=== PATIENT | male | born 1960 | race Caucasian/White ===

== ENCOUNTER 2018-10-16 15:01 | Inpatient (IN) | payer MEDICARE, MEDICAID ==
[~2018-10-16] VITALS: Ht 182.9 cm; Wt 116.6 kg
[2018-10-16 15:56] LABS: BASOPHILS % (AUTO) 0 % (0-10); EOSINOPHILS # (AUTO) 0.1 10^3/uL (0.0-0.3); EOSINOPHILS % (AUTO) 1 % (0-10); HEMATOCRIT 45 % (40-54); HEMOGLOBIN 14.9 G/DL (13.3-17.7); LYMPHOCYTES % (AUTO) 10 % (12-44); MEAN CORPUSCULAR HEMOGLOBIN 29 PG (25-34); MEAN CORPUSCULAR HGB CONC 33 G/DL (32-36); MEAN CORPUSCULAR VOLUME 89 FL (80-99); MEAN PLATELET VOLUME 10.4 FL (7.4-10.4); MONOCYTES # (AUTO) 0.8 X 10^3 (0.0-1.0); MONOCYTES % (AUTO) 8 % (0-12); NEUTROPHILS # (AUTO) 8.2 X 10^3 (1.8-7.8); NEUTROPHILS % (AUTO) 81 % (42-75); PLATELET COUNT 244 10^3/uL (130-400); RED CELL DISTRIBUTION WIDTH 13.9 % (10.0-14.5); WHITE BLOOD COUNT 10.1 10^3/uL (4.3-11.0)
[2018-10-16 16:06] LABS: CLARITY,URINE SLIGHTLY CLOUDY; COLOR,URINE AMBER; GLUCOSE, URINE (UA) NEGATIVE (NEGATIVE); KETONES,URINE 1+ (NEGATIVE); LEUKOCYTE ESTERASE ,URINE 1+ (NEGATIVE); NITRITE,URINE POSITIVE (NEGATIVE); PH,URINE 5 (5-9); PROTEIN,URINE 2+ (NEGATIVE); UROBILINOGEN,URINE 4 MG/DL (NORMAL)
[2018-10-16 16:07] LABS: PROTHROMBIN TIME PATIENT 13.4 SEC (12.2-14.7)
[2018-10-16 16:17] LABS: BACTERIA,URINE TRACE /HPF; BILIRUBIN,URINE 2+ (NEGATIVE); SQUAMOUS EPITHELIAL CELL,UR RARE /HPF
[2018-10-16 16:18] LABS: ALANINE AMINOTRANSFERASE 20 U/L (0-55); ALBUMIN 4.2 GM/DL (3.2-4.5); ALKALINE PHOSPHATASE 70 U/L (40-136); BILIRUBIN,TOTAL 0.4 MG/DL (0.1-1.0); BUN/CREATININE RATIO 16; CALCIUM 10.2 MG/DL (8.5-10.1); CARBON DIOXIDE 27 MMOL/L (21-32); CHLORIDE 101 MMOL/L (98-107); GFR ESTIMATED > 60; GLUCOSE 106 MG/DL (70-105); POTASSIUM 3.7 MMOL/L (3.6-5.0); SODIUM 136 MMOL/L (135-145); TOTAL PROTEIN 8.5 GM/DL (6.4-8.2)
[2018-10-16 16:18] LABS: GRANULAR CASTS,URINE RARE /LPF
--- NOTE | 2018-10-16 16:22 | Diagnostic Imaging Report ---
INDICATION: Left leg pain and swelling. Portable chest at 4:03 p.m. FINDINGS: Heart size and pulmonary vascularity are normal. Lungs are clear. There are no effusions or pneumothoraces. IMPRESSION: Negative chest. Dictated by: Dictated on workstation # [id number]
[2018-10-16] MEDS ORDERED: CEFEPIME INJECTION 1,000 MG in WATER (STERILE) FOR INJECTION 10 ML IV ONE (16:30)
--- NOTE | 2018-10-16 16:41 | ED General ---
General Chief Complaint: Skin/Wound Problems Stated Complaint: CELLULITIS Nursing Triage Note: PT STATES MONDAY HE NOTICED SWELLING AND REDNESS IN HIS LEFT LEG. PT HAS HISTORY OF CELLULITUS. PT DENIES PMH. PT STATES NUMBNESS AND TINGLING IN LEFT LEG AND FOOT WITH THROBBING. PT DENIES EATING SALTY FOODS. PT DENIES PMH. Nursing Sepsis Screen: No Definite Risk Source of Information: Patient Exam Limitations: No Limitations History of Present Illness Date Seen by Provider: October 16, 2018 Time Seen by Provider: 15:34 Initial Comments Here with report of left lower extremity swelling and redness has been going on for the last 2-3 days. He states that he has cellulitis of that leg every 2-3 years after he had significant injury many years ago. Did have fever and chills overnight. Reports that he had some nausea and vomiting yesterday. That is somewhat improved today. He was seen by his provider's nurse practitioner today who recommended that he come here for further evaluation because he likely needed admission. Timing/Duration: 2-3 Days Severity: Moderate Modifying Factors: improves with Immobilization; worse with Movement Associated Systoms: No Chest Pain, No Cough; Fever/Chills; No Headaches; Nausea/Vomiting; No Shortness of Air, No Weakness Allergies and Home Medications Allergies Coded Allergies: aripiprazole (Verified Allergy, Unknown, 10/16/18) citalopram (Verified Allergy, Unknown, 10/16/18) codeine (Verified Allergy, Unknown, 10/16/18) Patient Home Medication List Home Medication List Reviewed: Yes Review of Systems Review of Systems Constitutional: see HPI; No chills, No fever EENTM: no symptoms reported Respiratory: no symptoms reported Cardiovascular: no symptoms reported Gastrointestinal: No nausea, No vomiting Genitourinary: no symptoms reported Musculoskeletal: see HPI, muscle pain, muscle stiffness Skin: change in color; No lesions Psychiatric/Neurological: No Symptoms Reported All Other Systems Reviewed Negative Unless Noted: Yes Past Boboaqp-Rbghzs-Pruedb Hx Past Med/Social Hx: Reviewed Nursing Past Med/Soc Hx Patient Social History Alcohol Use: Occasionally Uses Alcohol Beverage of Choice: Beer Recreational Drug Use: Yes (RARE THC) Smoking Status: Former Smoker Type Used: Cigarettes Former Smoker, Quit: Jul 20, 2018 Recent Foreign Travel: No Contact w/Someone Who Travel: No Recent Infectious Disease Expo: No Recent Hopitalizations: No Seasonal Allergies Seasonal Allergies: Yes Past Medical History Surgeries: Yes (TRAUMA TO LT FEMUR, TRAUMA TO RT HAND) Orthopedic Respiratory: No Cardiac: No Neurological: No Genitourinary: No Gastrointestinal: No Musculoskeletal: No Endocrine: Yes Hypothyroidsim Cancer: No Psychosocial: Yes Bipolar, Depression Family Medical History Reviewed Nursing Family Hx Physical Exam-Suspected Sepsis Physical Exam Vital Signs Vital Signs - First Documented 10/16/18 15:13 Temp 98.3 Pulse 79 Resp 18 B/P (MAP) 133/89 (104) Pulse Ox 96 O2 Delivery Room Air Capillary Refill : Less Than 3 Seconds Blood Pressure Mean: 104 Height, Weight, BMI Height: 6'0" Weight: 257lbs. oz. 116.206917ua; BMI Method:Stated General Appearance: No Apparent Distress, WD/WN HEENT: PERRL/EOMI, Pharynx Normal Neck: Non Tender, Supple Respiratory: Lungs Clear, Normal Breath Sounds Cardiovascular: Regular Rate, Rhythm, No Murmur Gastrointestinal: Non Tender, Soft Back: Normal Inspection, No CVA Tenderness, No Vertebral Tenderness Extremity: Pedal Edema (moderate left leg from toes to mid thigh), Swelling (left leg) Neurologic/Psychiatric: Alert, Oriented x3 Skin: other (left lower extremity was read and hot up to the level just below the knee. Tender over area of reddened skin.) Focused Exam Lactate Level 10/16/18 15:45: Lactic Acid Level 1.60 Lactic Acid Level Laboratory Tests Test 10/16/18 15:45 Lactic Acid Level 1.60 MMOL/L (0.50-2.00) Progress/Results/Core Measures Suspected Sepsis Recent Fever Within 48 Hours: Yes Infection Criteria Present: Suspected New Infection New/Unexplained Altered Menta: No Sepsis Screen: No Definite Risk SIRS Temperature:98.3 Pulse: 79 Respiratory Rate: 18 Laboratory Tests 10/16/18 15:45: White Blood Count 10.1 Blood Pressure 133 /89 Mean: 104 10/16/18 15:45: Lactic Acid Level 1.60 Laboratory Tests 10/16/18 15:45: Creatinine 1.20, INR Comment 1.0, Platelet Count 244, Total Bilirubin 0.4 Results/Orders Lab Results Laboratory Tests Test 10/16/18 15:45 10/16/18 15:55 Range/Units White Blood Count 10.1 4.3-11.0 10^3/uL Red Blood Count 5.08 4.35-5.85 10^6/uL Hemoglobin 14.9 13.3-17.7 G/DL Hematocrit 45 40-54 % Mean Corpuscular Volume 89 80-99 FL Mean Corpuscular Hemoglobin 29 25-34 PG Mean Corpuscular Hemoglobin Concent 33 32-36 G/DL Red Cell Distribution Width 13.9 10.0-14.5 % Platelet Count 244 130-400 10^3/uL Mean Platelet Volume 10.4 7.4-10.4 FL Neutrophils (%) (Auto) 81 H 42-75 % Lymphocytes (%) (Auto) 10 L 12-44 % Monocytes (%) (Auto) 8 0-12 % Eosinophils (%) (Auto) 1 0-10 % Basophils (%) (Auto) 0 0-10 % Neutrophils # (Auto) 8.2 H 1.8-7.8 X 10^3 Lymphocytes # (Auto) 1.0 1.0-4.0 X 10^3 Monocytes # (Auto) 0.8 0.0-1.0 X 10^3 Eosinophils # (Auto) 0.1 0.0-0.3 10^3/uL Basophils # (Auto) 0.0 0.0-0.1 10^3/uL Prothrombin Time 13.4 12.2-14.7 SEC INR Comment 1.0 0.8-1.4 Activated Partial Thromboplast Time 36 H 24-35 SEC Sodium Level 136 135-145 MMOL/L Potassium Level 3.7 3.6-5.0 MMOL/L Chloride Level 101 98-107 MMOL/L Carbon Dioxide Level 27 21-32 MMOL/L Anion Gap 8 5-14 MMOL/L Blood Urea Nitrogen 19 H 7-18 MG/DL Creatinine 1.20 0.60-1.30 MG/DL Estimat Glomerular Filtration Rate > 60 BUN/Creatinine Ratio 16 Glucose Level 106 H 70-105 MG/DL Lactic Acid Level 1.60 0.50-2.00 MMOL/L Calcium Level 10.2 H 8.5-10.1 MG/DL Corrected Calcium 10.0 8.5-10.1 MG/DL Total Bilirubin 0.4 0.1-1.0 MG/DL Aspartate Amino Transf (AST/SGOT) 20 5-34 U/L Alanine Aminotransferase (ALT/SGPT) 20 0-55 U/L Alkaline Phosphatase 70 40-136 U/L Total Protein 8.5 H 6.4-8.2 GM/DL Albumin 4.2 3.2-4.5 GM/DL Urine Color HILTON H Urine Clarity SLIGHTLY CLOUDY Urine pH 5 5-9 Urine Specific [place] 1.020 1.016-1.022 Urine Protein 2+ H NEGATIVE Urine Glucose (UA) NEGATIVE NEGATIVE Urine Ketones 1+ H NEGATIVE Urine Nitrite POSITIVE H NEGATIVE Urine Bilirubin 2+ H NEGATIVE Urine Urobilinogen 4 H NORMAL MG/DL Urine Leukocyte Esterase 1+ H NEGATIVE Urine RBC (Auto) 3+ H NEGATIVE Urine RBC 2-5 H /HPF Urine WBC 2-5 /HPF Urine Squamous Epithelial Cells RARE /HPF Urine Crystals NONE /LPF Urine Bacteria TRACE /HPF Urine Casts PRESENT /LPF Urine Granular Casts RARE /LPF Urine Mucus LARGE H /LPF Urine Culture Indicated CULTURE PENDING My Orders Orders - CHELSI CAMPBELL MD Us Venous Lower Ext Lt (10/16/18 15:35) Cbc With Automated Diff (10/16/18 15:35) Comprehensive Metabolic Panel (10/16/18 15:35) Blood Culture (10/16/18 15:35) Sputum Culture (10/16/18 15:35) Urinalysis (10/16/18 15:35) Urine Culture (10/16/18 15:35) Protime With Inr (10/16/18 15:35) Partial Thromboplastin Time (10/16/18 15:35) Chest 1 View, Ap/Pa Only (10/16/18 15:35) Ed Iv/Invasive Line Start (10/16/18 15:35) Vital Signs Adult Sepsis Patie Q15M (10/16/18 15:35) O2 (10/16/18 15:35) Remove Rings In Anticipation O (10/16/18 15:35) Lactic Acid Analyzer (10/16/18 15:35) Cefepime Injection (Maxipime Injection) (10/16/18 16:30) Vital Signs/I&O 10/16/18 15:13 Temp 98.3 Pulse 79 Resp 18 B/P (MAP) 133/89 (104) Pulse Ox 96 O2 Delivery Room Air Capillary Refill : Less Than 3 Seconds Blood Pressure Mean: 104 Progress Note : Progress Note Seen and evaluated. IV, labs, blood cultures, lactic acid, UA and chest x-ray ordered. Ultrasound left lower extremity ordered. Monitor patient. 1603: Findings consistent with cellulitis and DVT study negative. We will initiate treatment for lower extremity cellulitis and due to the swelling we will use cefepime and vancomycin. Cefepime 1 g IV initiated. I did discuss the case with Dr. Prado and she accepts patient for admission, inpatient status. Patient agrees with plan. Diagnostic Imaging Diagonstic Imaging: Xray Plain Films/CT/US/NM/MRI: chest Comments [facility], [place] NAME: GRISELDA GARCIA [facility] REC#: [id number] PT STATUS: REG ER : 1960 PHYSICIAN: CHELSI CAMPBELL MD ADMIT DATE: 10/16/18/ER Draft Date of Exam:10/16/18 CHEST 1 VIEW, AP/PA ONLY INDICATION: Left leg pain and swelling. Portable chest at 4:03 p.m. FINDINGS: Heart size and pulmonary vascularity are normal. Lungs are clear. There are no effusions or pneumothoraces. IMPRESSION: Negative chest. Dictated on workstation # [id number] Dict: 10/16/18 1610 Trans: 10/16/18 1621 KB [id number] Interpreted by: CHELSI AYOUB MD Electronically signed by: Diagonstic Imaging: Ultrasound Plain Films/CT/US/NM/MRI: leg Comments Left lower extremity ultrasound shows no findings concerning for DVT per preliminary read. Departure Communication (Admissions) Time/Spoke to Admitting Phy: 16:03 Impression Primary Impression: Cellulitis of left lower extremity Disposition: ADMITTED INPATIENT Condition: Stable Admissions Decision to Admit Reason: Admit from ER (General) Decision to Admit/Date: October 16, 2018 Time/Decision to Admit Time: 16:03 Departure-Patient Inst. Referrals: CHARLOTTE DAWN MD (PCP) Primary Care Physician CHELSI CAMPBELL MD October 16, 2018 16:41
--- OUTSIDE RECORDS SUMMARY | 2018-10-16 17:05 | XMS REPORT | Continuity of Care Document ---
Author Organization Unknown Address Unknown Allergies There is no data. Medications There is no data. Problems There is no data. Procedures There is no data. Results There is no data. Encounters ACCT No. Visit Date/Time Discharge Status Pt. Type Provider Facility Loc./Unit Complaint [id number] 09/24/2018 10:50:00 09/24/2018 23:59:59 CLS Outpatient YASSINE PHD, BOAZ Hauser [facility]
--- OUTSIDE RECORDS SUMMARY | 2018-10-16 17:23 | XMS REPORT | Continuity of Care Document ---
Author Organization Unknown Address Unknown Allergies There is no data. Medications There is no data. Problems There is no data. Procedures There is no data. Results There is no data. Encounters ACCT No. Visit Date/Time Discharge Status Pt. Type Provider Facility Loc./Unit Complaint [id number] 09/24/2018 10:50:00 09/24/2018 23:59:59 CLS Outpatient YASSINE PHD, BOAZ Hauser [facility]
[2018-10-16 17:47] VITALS: BP 127/68
[2018-10-16 17:49] VITALS: BP 127/68
--- NOTE | 2018-10-16 17:57 | NUR ---
GRISELDA GARCIA admitted to room 424-1, with an admitting diagnosis of cellulitis, on 10/16/18 from [place] via wheelchair, accompanied by staff.GRISELDA GARCIA introduced to surroundings, call light, bed controls, phone, TV, temperature control, lights, meal times, smoking policy, visitor policy, side rail policy, bathrooms and showers. Patient Rights given to patient in the handbook. GRISELDA GARCIA verbalizes understanding that [facility] is not responsible for the loss or damage to any personal effects or valuables that are kept in the patients posession during their hospitalization. The following Patient Care Plans were discussed with the pt: Discharge Planning. GRISELDA GARCIA verbalizes understanding of Interdisciplinary Patient Education. Patient and/or family were informed about the Rapid Response Team and its purpose.
[2018-10-16 19:09] VITALS: BP 128/78
[2018-10-16] MEDS ORDERED: VANCOMYCIN 2,500 MG/NS 500 ML IVPB IV NR ×2 (19:30)
[2018-10-16] MEDS ORDERED: ONDANSETRON 4 MG/2 ML (SDV) Z0FRAN IV PRN (19:45)
[2018-10-16] MEDS ORDERED: ACETAMINOPHEN 500 MG TAB (TYLENOL) PO PRN (19:45)
[2018-10-16] MEDS: CATHETER FLUSH 10 ML SYR IV SCH (19:48)
--- NOTE | 2018-10-16 19:49 | NUR ---
PHARMACY TO DOSE VANCOMYCIN: ADJ BW 93.2 KG, SCr 1.2, EST CrCl 88 LOADING DOSE = 2,500 MG MAIN DOSE = 1,750 MG Q 12 HR VANCOMYCIN TROUGH DUE 10/18/18 @ 07:00 IF TROUGH GREATER THAN 20 HOLD 10/18/18 08:00 DOSE.
[2018-10-16] MEDS: KETOROLAC 30 MG/ML VIAL IV PRN (19:58)
[2018-10-16] MEDS ORDERED: CATHETER FLUSH 10 ML SYR IV PRN (20:00)
[2018-10-16] MEDS: CEFEPIME 1,000 MG/SWFI 10 ML IV PUSH IV SCH ×2 (23:56)
[2018-10-17] VITALS: BP 95/50
[2018-10-17] MEDS: KETOROLAC 30 MG/ML VIAL IV PRN ×2 (03:59→16:07)
[2018-10-17 04:00] VITALS: BP 118/69
[2018-10-17 06:07] LABS: BASOPHILS % (AUTO) 0 % (0-10); EOSINOPHILS # (AUTO) 0.1 10^3/uL (0.0-0.3); EOSINOPHILS % (AUTO) 1 % (0-10); HEMATOCRIT 38 % (40-54); HEMOGLOBIN 12.5 G/DL (13.3-17.7); LYMPHOCYTES # (AUTO) 1.3 X 10^3 (1.0-4.0); LYMPHOCYTES % (AUTO) 11 % (12-44); MEAN CORPUSCULAR HEMOGLOBIN 29 PG (25-34); MEAN CORPUSCULAR HGB CONC 33 G/DL (32-36); MEAN CORPUSCULAR VOLUME 89 FL (80-99); MEAN PLATELET VOLUME 10.3 FL (7.4-10.4); MONOCYTES # (AUTO) 1.1 X 10^3 (0.0-1.0); MONOCYTES % (AUTO) 9 % (0-12); NEUTROPHILS # (AUTO) 8.7 X 10^3 (1.8-7.8); NEUTROPHILS % (AUTO) 78 % (42-75); PLATELET COUNT 223 10^3/uL (130-400); RED CELL DISTRIBUTION WIDTH 13.8 % (10.0-14.5); WHITE BLOOD COUNT 11.2 10^3/uL (4.3-11.0)
[2018-10-17] MEDS: CEFEPIME 1,000 MG/SWFI 10 ML IV PUSH IV SCH ×8 (06:24→23:18)
[2018-10-17] MEDS: CATHETER FLUSH 10 ML SYR IV SCH ×3 (06:24→20:33)
[2018-10-17 06:39] LABS: ALANINE AMINOTRANSFERASE 26 U/L (0-55); ALBUMIN 3.2 GM/DL (3.2-4.5); ALKALINE PHOSPHATASE 66 U/L (40-136); BILIRUBIN,TOTAL 0.4 MG/DL (0.1-1.0); BUN/CREATININE RATIO 23; CARBON DIOXIDE 20 MMOL/L (21-32); CHLORIDE 104 MMOL/L (98-107); CREATININE SERUM 0.98 MG/DL (0.60-1.30); GFR ESTIMATED > 60; GLUCOSE 97 MG/DL (70-105); POTASSIUM 3.7 MMOL/L (3.6-5.0); SODIUM 135 MMOL/L (135-145); TOTAL PROTEIN 6.4 GM/DL (6.4-8.2)
--- NOTE | 2018-10-17 07:01 | Diagnostic Imaging Report ---
PROCEDURE: US left lower extremity venous. TECHNIQUE: Multiple real-time grayscale images were obtained over the left lower extremity in various projections. Additional duplex Doppler and color Doppler images were also obtained. INDICATION: Indication: Left lower extremity edema and pain EXAMINATION: Grayscale and color Doppler evaluation of the deep veins of the left lower extremity were performed with waveform analysis. FINDINGS: Continuous venous flow is present. No intraluminal filling defect is identified. There is normal compressibility and response to augmentation. No abnormal perivascular fluid collection is identified. IMPRESSION: No ultrasound evidence of left lower extremity deep venous thrombosis. Dictated by: Dictated on workstation # [id number]
[2018-10-17 08:00] VITALS: BP 123/69
[2018-10-17] MEDS: VANCOMYCIN 1,750 MG/NS 500 ML IVPB IV SCH ×4 (08:28→20:31)
[2018-10-17] MEDS ORDERED: SIMV40TA4 PO (08:44)
[2018-10-17] MEDS ORDERED: DICL100G18 TP (08:44)
[2018-10-17] MEDS ORDERED: SERT100T8 PO (08:44)
[2018-10-17] MEDS ORDERED: DIVA250T12 PO (08:44)
[2018-10-17] MEDS ORDERED: OMG1KC PO (08:44)
[2018-10-17] MEDS ORDERED: OMEP20CA12 PO (08:44)
[2018-10-17] MEDS ORDERED: LEVO150T6 PO (08:44)
[2018-10-17] MEDS ORDERED: DIVA500T15 PO (08:44)
--- NOTE | 2018-10-17 08:48 | NUR ---
SPOKE WITH THE PATIENT ABOUT HIS MEDICATIONS. THERE [facility] AND [facility] W[facility] WELL HIS BOTTLES HE HAS IN HIS ROOM. HIS SERTRALINE IS WRITTEN TO TAKE 1/2 TAB DAILY HOWEVER HE STATES LAST TIME HE WAS SEEN THIS WAS INCREASED TO 1 WHOLE TABLET DAILY. HE TAKES FISH OIL DAILY OTC.
--- NOTE | 2018-10-17 11:25 | History & Physicial (CHS) ---
HPI History of Present Illness: Cellulitis starting Monday overnight, had nausea, night sweats, cold sweats. He has had recurrent issues after a severe injury to his leg in the . He took ibuprofen and his temperature went down and he hasn't had fever since. Date seen by provider: October 17, 2018 Time Seen by Provider: 11:24 Attending Physician Stefany Prado MD PCP Milan Greenfield MD Consult Date of Admission October 16, 2018 at 16:03 Home Medications Home Medications Reviewed patient Home Medication Reconciliation performed by pharmacy medication reconciliations automotive drivability technician and/or nursing. Patients Allergies have been reviewed. Allergies Coded Allergies: aripiprazole (Verified Allergy, Unknown, 10/16/18) citalopram (Verified Allergy, Unknown, 10/16/18) codeine (Verified Allergy, Unknown, 10/16/18) DXO-Nummko-Mrhvmk Hx Patient Social History Alcohol Use: Occasionally Uses Recreational Drug Use: Yes (RARE THC) Smoking Status: Former Smoker Former smoker/When Quit: Jul 20, 2018 Type Used: Cigarettes Recent Foreign Travel: No Contact w/other who traveled: No Recent Hopitalizations: No Recent Infectious Disease Expo: No Physical Abuse Screen: No Sexual Abuse: No Immunizations Up To Date Date of Pneumonia Vaccine: Feb 01, 2017 Past Medical History PMHx: Depression Bipolar disorder Hypothyroidism PSurgHx: Left leg after metal piece injury Carpal tunnel Wrist injury Family Medical History Significant Family History: Diabetes, Hypertension Review of Systems (CHC) Constitutional: fever EENTM: No nose congestion, No throat pain Respiratory: cough (nonproductive); No short of breath Cardiovascular: No chest pain Gastrointestinal: No abdominal pain, No constipation; diarrhea, nausea; No vomiting Genitourinary: dysuria Musculoskeletal: joint pain (left knee and ankle) Skin: see HPI Psychiatric/Neurological: Denies Anxiety, Denies Depressed Reviewed Test Results Reviewed Test Results Lab Laboratory Tests Test 10/16/18 15:45 10/16/18 15:55 10/17/18 05:47 Range/Units White Blood Count 10.1 11.2 H 4.3-11.0 10^3/uL Red Blood Count 5.08 4.27 L 4.35-5.85 10^6/uL Hemoglobin 14.9 12.5 L 13.3-17.7 G/DL Hematocrit 45 38 L 40-54 % Mean Corpuscular Volume 89 89 80-99 FL Mean Corpuscular Hemoglobin 29 29 25-34 PG Mean Corpuscular Hemoglobin Concent 33 33 32-36 G/DL Red Cell Distribution Width 13.9 13.8 10.0-14.5 % Platelet Count 244 223 130-400 10^3/uL Mean Platelet Volume 10.4 10.3 7.4-10.4 FL Neutrophils (%) (Auto) 81 H 78 H 42-75 % Lymphocytes (%) (Auto) 10 L 11 L 12-44 % Monocytes (%) (Auto) 8 9 0-12 % Eosinophils (%) (Auto) 1 1 0-10 % Basophils (%) (Auto) 0 0 0-10 % Neutrophils # (Auto) 8.2 H 8.7 H 1.8-7.8 X 10^3 Lymphocytes # (Auto) 1.0 1.3 1.0-4.0 X 10^3 Monocytes # (Auto) 0.8 1.1 H 0.0-1.0 X 10^3 Eosinophils # (Auto) 0.1 0.1 0.0-0.3 10^3/uL Basophils # (Auto) 0.0 0.0 0.0-0.1 10^3/uL Prothrombin Time 13.4 12.2-14.7 SEC INR Comment 1.0 0.8-1.4 Activated Partial Thromboplast Time 36 H 24-35 SEC Sodium Level 136 135 135-145 MMOL/L Potassium Level 3.7 3.7 3.6-5.0 MMOL/L Chloride Level 101 104 98-107 MMOL/L Carbon Dioxide Level 27 20 L 21-32 MMOL/L Anion Gap 8 11 5-14 MMOL/L Blood Urea Nitrogen 19 H 23 H 7-18 MG/DL Creatinine 1.20 0.98 0.60-1.30 MG/DL Estimat Glomerular Filtration Rate > 60 > 60 BUN/Creatinine Ratio 16 23 Glucose Level 106 H 97 70-105 MG/DL Lactic Acid Level 1.60 0.50-2.00 MMOL/L Calcium Level 10.2 H 9.0 8.5-10.1 MG/DL Corrected Calcium 10.0 9.6 8.5-10.1 MG/DL Total Bilirubin 0.4 0.4 0.1-1.0 MG/DL Aspartate Amino Transf (AST/SGOT) 20 33 5-34 U/L Alanine Aminotransferase (ALT/SGPT) 20 26 0-55 U/L Alkaline Phosphatase 70 66 40-136 U/L Total Protein 8.5 H 6.4 6.4-8.2 GM/DL Albumin 4.2 3.2 3.2-4.5 GM/DL Urine Color HILTON H Urine Clarity SLIGHTLY CLOUDY Urine pH 5 5-9 Urine Specific [place] 1.020 1.016-1.022 Urine Protein 2+ H NEGATIVE Urine Glucose (UA) NEGATIVE NEGATIVE Urine Ketones 1+ H NEGATIVE Urine Nitrite POSITIVE H NEGATIVE Urine Bilirubin 2+ H NEGATIVE Urine Urobilinogen 4 H NORMAL MG/DL Urine Leukocyte Esterase 1+ H NEGATIVE Urine RBC (Auto) 3+ H NEGATIVE Urine RBC 2-5 H /HPF Urine WBC 2-5 /HPF Urine Squamous Epithelial Cells RARE /HPF Urine Crystals NONE /LPF Urine Bacteria TRACE /HPF Urine Casts PRESENT /LPF Urine Granular Casts RARE /LPF Urine Mucus LARGE H /LPF Urine Culture Indicated CULTURE PENDING Radiology CXR 10/16 with no acute findings Left LE US 10/16 no DVT Physical Exam-(CHC) Physical Exam Vital Signs VS - Last 72 Hours, by Label 10/16/18 10/16/18 10/16/18 10/16/18 15:13 17:28 17:47 17:49 Temp 98.3 96.5 97.8 97.8 Pulse 79 74 84 84 Resp 18 18 20 20 B/P (MAP) 133/89 (104) 121/76 (91) 127/68 127/68 (87) Pulse Ox 96 97 97 97 O2 Delivery Room Air Room Air Room Air Room Air 10/16/18 10/16/18 10/17/18 10/17/18 19:09 20:00 00:00 04:00 Temp 97.9 97.1 97.4 Pulse 80 73 81 Resp 22 18 18 B/P (MAP) 128/78 (95) 95/50 (65) 118/69 (85) Pulse Ox 97 97 93 90 O2 Delivery Room Air Room Air Room Air Room Air 10/17/18 10/17/18 10/17/18 08:00 08:00 12:00 Temp 96.6 98.7 Pulse 78 74 Resp 20 20 B/P (MAP) 123/69 (87) 101/59 (73) Pulse Ox 95 95 93 O2 Delivery Room Air Room Air Room Air Capillary Refill : Less Than 3 Seconds General Appearance: WD/WN, no apparent distress Respiratory: lungs clear Cardiovascular: regular rate, rhythm, no murmur Gastrointestinal: normal bowel sounds, non tender, soft Extremities: other (left lower leg with marked edema 2-3+, mild erythema from foot to mid [place]) Neurologic/Psychiatric: alert, normal mood/affect Assessment/Plan Assessment/Plan Admission Status: Inpatient Order (span 2 midnights) Reason for Inpatient Admission: Severe cellulitis requiring IV antibiotics with underlying abnormal anatomy at high risk for progression to sepsis (1) Cellulitis of left lower extremity Status: Acute Assessment & Plan: Without sepsis- afebrile, no leukocytosis, but severe swelling and underlying abnormal anatomy secondary to injury. Improving, Continue vancomycin and cefepime. (2) Urinary tract infection Status: Acute Assessment & Plan: On abx for cellulitis as noted above, culture pending. Qualifiers: Qualified Codes: N30.01 - Acute cystitis with hematuria (3) Bipolar disorder Status: Chronic Assessment & Plan: Resume home medications (4) Hypothyroidism Status: Chronic Assessment & Plan: Resume home medication. (5) DVT prophylaxis Status: Acute Assessment & Plan: Enoxaparin. Clinical Quality Measures DVT/VTE Risk/Contraindication: Risk Factor Score Per Nursin RFS Level Per Nursing on Admit: 3=High STEFANY PRADO MD October 17, 2018 11:25
[2018-10-17 12:00] VITALS: BP 101/59
[2018-10-17] MEDS ORDERED: DICLOFENAC 1% GEL 100 GM (VOLTAREN) TUBE TOP PRN (12:45)
[2018-10-17] MEDS: LEVOTHYROXINE 150 MCG (LEVOTHROID) TAB PO SCH (13:22)
[2018-10-17] MEDS ORDERED: PHARMACY TO DOSE SQ SCH (15:00)
[2018-10-17 16:10] VITALS: BP 121/70
[2018-10-17] MEDS: ENOXAPARIN 40 MG/0.4 ML (LOVENOX) SYR SC SCH (16:12)
[2018-10-17 19:55] VITALS: BP 100/56
[2018-10-17] MEDS: SIMvastatin 20 MG (ZOCOR) TAB PO SCH (20:31)
[2018-10-17] MEDS: DIVALPROEX EXT RELEASE 250 MG (DEPAKOTE ER) TAB PO SCH (20:31)
[2018-10-17] MEDS: SERTRALINE 100 MG (ZOLOFT) TAB PO SCH (20:32)
[2018-10-17] MEDS: DIVALPROEX EXT RELEASE 500 MG (DEPAKOTE ER) TAB PO SCH (20:32)
[2018-10-18 00:26] VITALS: BP 130/65
[2018-10-18] MEDS: LEVOTHYROXINE 150 MCG (LEVOTHROID) TAB PO SCH (06:00)
[2018-10-18] MEDS: CATHETER FLUSH 10 ML SYR IV SCH ×3 (06:01→20:11)
[2018-10-18] MEDS: CEFEPIME 1,000 MG/SWFI 10 ML IV PUSH IV SCH ×6 (06:01→18:33)
[2018-10-18] MEDS ORDERED: LEVOTHYROXINE 150 MCG (LEVOTHROID) TAB PO SCH (06:30)
[2018-10-18] MEDS ORDERED: TROUGH ORDER-PHARMACY XX NR (07:00)
[2018-10-18 07:06] LABS: HEMOGLOBIN 11.9 G/DL (13.3-17.7); MEAN PLATELET VOLUME 9.7 FL (7.4-10.4); RED CELL DISTRIBUTION WIDTH 13.6 % (10.0-14.5); WHITE BLOOD COUNT 10.5 10^3/uL (4.3-11.0)
[2018-10-18 07:23] LABS: BUN/CREATININE RATIO 17; CALCIUM 8.8 MG/DL (8.5-10.1); CARBON DIOXIDE 22 MMOL/L (21-32); CHLORIDE 106 MMOL/L (98-107); CREATININE SERUM 0.84 MG/DL (0.60-1.30); GFR ESTIMATED > 60; GLUCOSE 98 MG/DL (70-105); SODIUM 135 MMOL/L (135-145)
[2018-10-18 07:31] LABS: VANCOMYCIN,TROUGH 17.1 UG/ML (10.0-20.0)
[2018-10-18 08:34] VITALS: BP 104/64
[2018-10-18] MEDS: VANCOMYCIN 1,750 MG/NS 500 ML IVPB IV SCH ×4 (08:46→20:08)
[2018-10-18] MEDS: PANTOPRAZOLE 20 MG TABLET (PROTONIX) PO SCH (08:46)
[2018-10-18 13:18] VITALS: BP 133/89
--- NOTE | 2018-10-18 13:29 | Progress Note (SOAP) ---
Subjective Subjective/Events-last exam Afebrile, no acute events. Leg remains massively swollen and he cannot ambulate due to swelling. Review of Systems Date Seen by Provider: October 18, 2018 Time Seen by Provider: 11:00 Focused Exam Lactate Level 10/16/18 15:45: Lactic Acid Level 1.60 Objective Exam Last Set of Vital Signs Vital Signs Date Time Temp Pulse Resp B/P (MAP) Pulse Ox O2 Delivery O2 Flow Rate FiO2 10/18/18 08:34 100.0 70 21 104/64 (77) 96 Room Air 0.00 Capillary Refill : Less Than 3 Seconds I&O Intake and Output 10/18/18 00:00 Intake Total 3135.0 ml Output Total 975 ml Balance 2160.0 ml Intake Oral 2080 ml IV Total 1055.0 ml Output Urine Total 975 ml # Bowel Movements 2 General: Alert, No Acute Distress Lungs: Other (wheeze on right) Heart: Regular Rate, No Murmurs Skin: Other (left lower leg with decreasing erythema and some skin wrinkling visible, but still with massive 3+ swelling) Psych/Mental Status: Mental Status NL Results/Procedures Lab Laboratory Tests 10/18/18 07:00: White Blood Count 10.5, Red Blood Count 4.03L, Hemoglobin 11.9L, Hematocrit 36L, Mean Corpuscular Volume 88, Mean Corpuscular Hemoglobin 30, Mean Corpuscular Hemoglobin Concent 33, Red Cell Distribution Width 13.6, Platelet Count 227, Mean Platelet Volume 9.7, Sodium Level 135, Potassium Level 4.0, Chloride Level 106, Carbon Dioxide Level 22, Anion Gap 7, Blood Urea Nitrogen 14, Creatinine 0.84, Estimat Glomerular Filtration Rate > 60, BUN/Creatinine Ratio 17, Glucose Level 98, Calcium Level 8.8, Vancomycin Level Trough 17.1 Microbiology 10/16/18 Blood Culture - Preliminary, Resulted No growth 10/16/18 Urine Culture - Final, Complete NO GROWTH Radiology CXR 10/16 with no acute findings Left LE US 10/16 no DVT Assessment/Plan Assessment/Plan (1) Cellulitis of left lower extremity Status: Acute Assessment & Plan: Without sepsis- afebrile, no leukocytosis, but severe swelling and underlying abnormal anatomy secondary to injury. Improving, Continue vancomycin and cefepime. 10/18 improving slowly, still too severely swollen to function safely at home, continue IV abx for now (2) Urinary tract infection Status: Acute Assessment & Plan: On abx for cellulitis as noted above, culture pending. 10/18 culture with no growth to date, will repeat UA given blood and nitrites on first check. Qualifiers: Qualified Codes: N30.01 - Acute cystitis with hematuria (3) Bipolar disorder Status: Chronic Assessment & Plan: Resume home medications (4) Hypothyroidism Status: Chronic Assessment & Plan: Resume home medication. (5) DVT prophylaxis Status: Acute Assessment & Plan: Enoxaparin. Clinical Quality Measures DVT/VTE Risk/Contraindication: Risk Factor Score Per Nursin RFS Level Per Nursing on Admit: 3=High STEFANY FARIAS MD October 18, 2018 13:29
[2018-10-18] MEDS: KETOROLAC 30 MG/ML VIAL IV PRN (15:23)
[2018-10-18] MEDS: ENOXAPARIN 40 MG/0.4 ML (LOVENOX) SYR SC SCH (15:24)
[2018-10-18 16:00] VITALS: BP 120/71
[2018-10-18] MEDS: RT-ALBUTEROL SULF 2.5 MG/3 ML PRE-MIX VIAL INH PRN (19:21)
[2018-10-18] MEDS: SIMvastatin 20 MG (ZOCOR) TAB PO SCH (20:08)
[2018-10-18] MEDS: SERTRALINE 100 MG (ZOLOFT) TAB PO SCH (20:08)
[2018-10-18] MEDS: DIVALPROEX EXT RELEASE 500 MG (DEPAKOTE ER) TAB PO SCH (20:10)
[2018-10-18] MEDS: DIVALPROEX EXT RELEASE 250 MG (DEPAKOTE ER) TAB PO SCH (20:11)
[2018-10-19 00:53] VITALS: BP 120/69
[2018-10-19] MEDS: CEFEPIME 1,000 MG/SWFI 10 ML IV PUSH IV SCH ×6 (00:56→13:35)
[2018-10-19] MEDS: KETOROLAC 30 MG/ML VIAL IV PRN (05:30)
[2018-10-19] MEDS: LEVOTHYROXINE 150 MCG (LEVOTHROID) TAB PO SCH (05:31)
[2018-10-19] MEDS: CATHETER FLUSH 10 ML SYR IV SCH (05:31)
[2018-10-19 06:53] LABS: HEMOGLOBIN 11.3 G/DL (13.3-17.7); RED CELL DISTRIBUTION WIDTH 13.7 % (10.0-14.5); WHITE BLOOD COUNT 9.5 10^3/uL (4.3-11.0)
[2018-10-19 06:55] LABS: BILIRUBIN,URINE NEGATIVE (NEGATIVE); CLARITY,URINE CLEAR; COLOR,URINE YELLOW; GLUCOSE, URINE (UA) NEGATIVE (NEGATIVE); KETONES,URINE NEGATIVE (NEGATIVE); LEUKOCYTE ESTERASE ,URINE NEGATIVE (NEGATIVE); NITRITE,URINE NEGATIVE (NEGATIVE); PH,URINE 6 (5-9); PROTEIN,URINE NEGATIVE (NEGATIVE); UROBILINOGEN,URINE NORMAL (NORMAL)
[2018-10-19 07:13] LABS: BACTERIA,URINE NEGATIVE /HPF; RBC,URINE RARE /HPF; SQUAMOUS EPITHELIAL CELL,UR 0-2 /HPF; WBC,URINE 0-2 /HPF
[2018-10-19] MEDS: RT-ALBUTEROL SULF 2.5 MG/3 ML PRE-MIX VIAL INH PRN (07:48)
[2018-10-19 08:00] VITALS: BP 126/68
[2018-10-19] MEDS ORDERED: CEPH500T PO (08:37)
[2018-10-19] MEDS: PANTOPRAZOLE 20 MG TABLET (PROTONIX) PO SCH (09:05)
[2018-10-19] MEDS: VANCOMYCIN 1,750 MG/NS 500 ML IVPB IV SCH ×2 (09:06)
--- NOTE | 2018-10-19 12:36 | Discharge Instructions ---
Discharge [facility] Discharge Medications New, Converted or Re-Newed RX: Transmitted to Pharmacy New Medications: Cephalexin (Cephalexin) 500 Mg Tablet 500 MG PO QID for 10 Days, #40 TAB 0 Refills Continued Medications: Diclofenac Sodium (Voltaren) 100 Gm Gel..gram. 4 GM TP QID PRN for MUSCLE PAIN, TUBE Divalproex Sodium (Divalproex Sodium ER) 500 Mg Tab.er.24h 1500 MG PO HS, TAB TAKES 3 (500MG) TABLETS ALONG WITH 250MG TABLET FOR A TOTAL DAILY DOSE OF 1750MG. Divalproex Sodium (Divalproex Sodium ER) 250 Mg Tab.er.24h 250 MG PO HS, TAB TAKES ALONG WITH 3 (500MG) TABLETS FOR A TOTAL DAILY DOSE OF 1750MG Levothyroxine Sodium (Levothyroxine Sodium) 150 Mcg Tablet 150 MCG PO DAILY, TAB Poca 3 Polyunsat Fatty Acids (Fish Oil 1,000 mg Capsule) 1,000 Mg Cap 1000 MG PO DAILY, CAP Omeprazole (Omeprazole) 20 Mg Capsule.dr 20 MG PO DAILY, CAP Sertraline HCl (Sertraline HCl) 100 Mg Tablet 100 MG PO HS, TAB Simvastatin (Simvastatin) 40 Mg Tablet 20 MG PO HS, TAB TAKES 1/2 (40MG) TABLET Patient Instructions Goal/Follow Up Appt: Follow up with Dr. Greenfield on October 25 at 3 pm. [facility] to [facility] For: Worsening redness and swelling in leg, inability to keep down medications. Activity & Diet Activity as Tolerated: Yes STEFANY FARIAS MD October 19, 2018 08:39
--- NOTE | 2018-10-19 13:50 | NUR ---
Important Message from Medicare presented/reviewed/signed and placed in patient chart. Patient and family voiced no intention to appeal and deny any needs or further questions at this time.
[2018-10-19] MEDS ORDERED: FURO20TA4 PO (14:31)
--- NOTE | 2018-10-19 17:35 | Discharge Summary ---
Diagnosis/Chief Complaint Date of Admission October 16, 2018 at 16:03 Date of Discharge October 19, 2018 at 14:40 Admission Diagnosis Admission Diagnosis LLE cellulitis Discharge Diagnosis See problem list Problems/Diagnosis: (1) Cellulitis of left lower extremity Assessment & Plan: Without sepsis- afebrile, no leukocytosis, but severe swelling and underlying abnormal anatomy secondary to injury. Improving, Continue vancomycin and cefepime. 10/19 improving slowly discharged on cephalexin Status: Acute (2) Urinary tract infection Assessment & Plan: On abx for cellulitis as noted above, culture pending. 10/18 culture with no growth to date, will repeat UA given blood and nitrites on first check. 10/19 repeat UA normal. Qualifiers: Qualified Codes: N30.01 - Acute cystitis with hematuria Status: Resolved (3) Bipolar disorder Assessment & Plan: Resume home medications Status: Chronic (4) Hypothyroidism Assessment & Plan: Resume home medication. Status: Chronic Chief Complaint/HPI Chief Complaint/HPI Cellulitis starting Monday overnight, had nausea, night sweats, cold sweats. He has had recurrent issues after a severe injury to his leg in the . He took ibuprofen and his temperature went down and he hasn't had fever since. Discharge Summary-Simple/Stand Consultations Discharge Physical Examination Allergies: Coded Allergies: aripiprazole (Verified Allergy, Unknown, 10/16/18) citalopram (Verified Allergy, Unknown, 10/16/18) codeine (Verified Allergy, Unknown, 10/16/18) Vitals & I&Os Vital Sign - Last 12Hours Date Time Temp Pulse Resp B/P (MAP) Pulse Ox O2 Delivery O2 Flow Rate FiO2 10/19/18 14:40 10/19/18 08:10 Room Air 10/19/18 08:00 96.3 67 20 95 10/18/18 13:18 21 10/18/18 08:34 0.00 Intake and Output 10/19/18 00:00 Intake Total 3157.5 ml Output Total 2100 ml Balance 1057.5 ml General Appearance: Alert, No Acute Distress Respiratory: Clear to Auscultation, Normal Air Movement Cardiovascular: Regular Rate, No Murmurs Abdominal: Normal Bowel Sounds, No Tenderness Skin: Other (Left leg massively swollen from foot to knee, mild erythema decreasing, some skin wrinkles visible.) Neuro: Normal Speech Psych/Mental Status: Mood NL Hospital Course See final discharge diagnosis. Radiology Reviewed CXR 10/16 with no acute findings Left LE US 10/16 no DVT Discharge Instructions to patient/family Please see electronic discharge instructions given to patient. Discharge Medications Reviewed and agree with Discharge Medication list on patient's Discharge Instruction sheet Clinical Quality Measures DVT/VTE Risk/Contraindication: Risk Factor Score Per Nursin RFS Level Per Nursing on Admit: 3=High Copy Copies To 1: SELF[place]LOT[place] MD, BETHANY N MD October 19, 2018 17:35
== END 2018-10-19 14:40 | disposition home or self-care (01) | DRG 603 ==
LOC: ER 15:05 → 4TH 16:03
PROVIDERS: ADMIT Family Medicine; ATTEND Family Medicine
DX: L03.116 Cellulitis of left lower limb (principal); N30.01 Acute cystitis with hematuria; E03.9 Hypothyroidism, unspecified; J30.2 Other seasonal allergic rhinitis; F31.9 Bipolar disorder, unspecified; Z87.891 Personal history of nicotine dependence; Z87.828 Personal history of other (healed) physical injury and trauma
CPT/HCPCS: 36415; 71045; 80048; 80053; 80202; 81000; 83605; 85025; 85027; 85610; 85730; 87040; 87088; 94640; 94760; 96374

== ENCOUNTER → 2022-06-01 | Outpatient (CLI) | payer MEDICARE, MEDICAID ==
[~2022-06-01] MED LIST: CEPH500T PO; DICL100G18 TP; DIVA250T12 PO; DIVA500T15 PO; FURO20TA4 PO; LEVO150T6 PO; OMEP20CA18 PO; OMG1KC PO; SERT-414 PO; SIMV40TA25 PO
--- NOTE | 2022-06-01 17:19 | Diagnostic Imaging Report ---
CT Lung Screening INDICATION:30 pack year smoking history for baseline low-dose CT screening. TECHNIQUE: Noncontrast, low-dose CT imaging performed according to the lung cancer screening protocol. Auto Exposure Controls were utilize during the CT exam to meet ALARA standards for radiation dose reduction. COMPARISON:Baseline FINDINGS:No lung mass, no suspicious pulmonary nodule. No thoracic adenopathy. No chest effusion. The aorta nonaneurysmal. The upper abdomen nonacute. IMPRESSION:No evidence of lung cancer or acute abnormalities, continued annual low-dose CT screening followup in one year's time recommended. LUNG-RADS CATEGORY:Category 1 MODIFIER:None OTHER SIGNIFICANT FINDINGS:None Dictated by: Dictated on workstation # [id number]
== END ==
LOC: RAD 14:16
PROVIDERS: ATTEND Family Medicine
DX: Z12.2 Encounter for screening for malignant neoplasm of respiratory organs (principal); Z87.891 Personal history of nicotine dependence
CPT/HCPCS: 71271